=== PATIENT | female | born 1990 | race Asian ===

== ENCOUNTER 2022-11-24 06:29 | Emergency (ER) | payer OTHER ==
[~2022-11-24] VITALS: Ht 162.6 cm; Wt 65.0 kg
[2022-11-24 06:31] VITALS: TEMP 98.5
[2022-11-24] MEDS ORDERED: LOPERAMIDE HCL 2 MG CAPSULE PO ONE (07:45)
[2022-11-24] MEDS ORDERED: SODIUM CHLORIDE 0.9% 1,000 ML IV ONE (07:45)
[2022-11-24] MEDS ORDERED: KETOROLAC TROMETHAMINE 30 MG/ML VIAL IVP ONE (07:45)
[2022-11-24] MEDS ORDERED: ONDANSETRON HCL 4 MG/2 ML VIAL IVP ONE (07:45)
[2022-11-24 08:04] LABS: BASOPHILS % (AUTO) 0.1 % (0.0-2.0); EOSINOPHILS % (AUTO) 0.4 % (1.0-6.0); HEMATOCRIT 43.6 % (36-46); HEMOGLOBIN 14.6 g/dL (12.0-16.0); LYMPHOCYTES # (AUTO) 0.6 K/uL (1.0-4.8); LYMPHOCYTES % (AUTO) 5.1 % (22.0-44.0); MEAN CORPUSCULAR HEMOGLOBIN 29.9 pg (26.0-34.0); MEAN CORPUSCULAR HGB CONC 33.6 G/dL (31.0-37.0); MEAN CORPUSCULAR VOLUME 89 fL (80-100); MONOCYTES # (AUTO) 0.8 K/uL (0.1-1.0); MONOCYTES % (AUTO) 7.3 % (2.0-9.0); NEUTROPHILS # (AUTO) 9.9 K/uL (1.8-7.7); PLATELET COUNT (AUTO) 313 K/uL (150-450); RED BLOOD CELL COUNT(AUTO) 4.88 MIL/uL (4.00-5.20); RED CELL DISTRIBUTION WIDTH 12.6 % (11.5-14.5); WHITE BLOOD COUNT (AUTO) 11.4 K/uL (4.5-11.0)
[2022-11-24 08:05] LABS: NEUTROPHILS % (AUTO) 87.1 % (40.0-70.0)
[2022-11-24 08:18] LABS: ANION GAP 9 mmol/L (8-16); CALCIUM, TOTAL 8.8 mg/dL (8.8-10.5); CARBON DIOXIDE 27 mmol/L (22-29); CHLORIDE 100 mmol/L (98-107); CREATININE 0.88 mg/dL (0.60-1.30); GLOMERULAR FILTR. RATE CALC > 60 mL/min (>60); GLUCOSE,RANDOM 116 mg/dL (70-110); POTASSIUM 3.9 mmol/L (3.5-5.1); SODIUM SERUM 136 mmol/L (136-145); UREA NITROGEN, BLOOD 13 mg/dL (7-18)
[2022-11-24 08:28] LABS: ALANINE AMINOTRANSFERASE 25 U/L (12-78); ALKALINE PHOSPHATASE 43 U/L (46-116); ASPARTATE AMINOTRANSFERASE 15 U/L (15-37); HCG,QUANTITATIVE < 1 mIU/mL (0-6); LIPASE 17 U/L (16-77); TOTAL PROTEIN, SERUM 7.5 g/dL (6.4-8.2)
[2022-11-24 09:34] VITALS: BP 116/69; PULSE 75; RESP 16
[2022-11-24] MEDS ORDERED: ONDA-104 PO (09:39)
[2022-11-24] MEDS ORDERED: LOPE-232 PO (09:39)
== END 2022-11-24 09:58 | disposition home or self-care (01) ==
LOC: EMS 06:29
DX: A08.4 Viral intestinal infection, unspecified (principal); R10.813 Right lower quadrant abdominal tenderness
CPT/HCPCS: 80053; 83690; 84702; 85025; 36415; 74176; 99285; 96361; 96374; 96375; J1885; J2405; J7030

== ENCOUNTER 2023-03-13 16:10 | Emergency (ER) | payer OTHER ==
[~2023-03-13] VITALS: Ht 162.6 cm; Wt 67.3 kg
[~2023-03-13 16:10] MED LIST: LOPE-232 PO; ONDA-104 PO
[2023-03-13 16:30] VITALS: TEMP 98.4
[2023-03-13 16:48] LABS: COVID AG,FIA SOURCE NASAL SWAB
[2023-03-13 17:26] LABS: INFLUENZA TYPE A NEGATIVE FOR TYPE A (NEGATIVE); INFLUENZA TYPE B NEGATIVE FOR TYPE B (NEGATIVE)
[2023-03-13 17:27] LABS: RAPID GROUP A STREP NEGATIVE (NEGATIVE)
[2023-03-13 17:29] LABS: SARS-COV2 (COVID) ANTIGEN,FIA Negative (Negative)
[2023-03-13] MEDS ORDERED: NIRM1TAB4 PO (20:14)
[2023-03-13 20:15] VITALS: BP 122/62; PULSE 91; RESP 16
== END 2023-03-13 20:33 | disposition home or self-care (01) ==
LOC: EMS 16:14
DX: U07.1 COVID-19 (principal)
CPT/HCPCS: 87430; 87804; 99283